=== PATIENT | female | born 1975 | race African-American/Black ===

== ENCOUNTER 2018-05-09 06:01 | Day surgery (SDC) | payer BC ==
[2018-05-08 12:34] VITALS: BMI 28.7
--- NOTE | 2018-05-09 12:37 | HP ---
History & Physical Update - History History: No Change - Physical Physical: No Change - Assessment Assessment: No Change - Plan Plan: No Change (No change in HP)
[2018-05-09] MEDS ORDERED: MIDAZOLAM HCL 2 MG/2 ML SINGLE DOSE VIAL ONE (12:58)
[2018-05-09] MEDS ORDERED: PROPOFOL 20 ML ONE ×2 (12:58→13:58)
[2018-05-09] MEDS ORDERED: DEXAMETHASONE SOD PHOSPHATE 4 MG/1 ML VIAL ONE (12:59)
[2018-05-09] MEDS ORDERED: LIDOCAINE HCL/PF 2% SDV 5ML VIAL ONE (12:59)
[2018-05-09] MEDS ORDERED: PROMETHAZINE HCL 25 MG/1 ML VIAL IVPUSH PRN (13:56)
[2018-05-09] MEDS ORDERED: oxyCODONE HCL 5 MG TABLET PO PRN (13:56)
[2018-05-09] MEDS ORDERED: ONDANSETRON 4 MG/2 ML VIAL IVPUSH PRN (13:56)
[2018-05-09] MEDS ORDERED: MEPERIDINE HCL CARPU-JECT 25 MG/1 ML DISP.SYRIN ONE (14:10)
[2018-05-09] MEDS ORDERED: MEPERIDINE HCL CARPU-JECT 25 MG/1 ML DISP.SYRIN IVPUSH ONE (14:14)
[2018-05-09 16:52] VITALS: PULSE 89; TEMP 98
[2018-05-09] MEDS ORDERED: ACETAMINOPHEN 325 MG TABLET (FP) PO PRN (17:03)
[2018-05-09] MEDS ORDERED: IBUPROFEN 400 MG TABLET (FP) PO PRN (17:03)
--- NOTE | 2018-05-09 17:05 | OP ---
Operative Note - Note: Operative Date: 05/09/18 Pre-Operative Diagnosis: Submucosal myoma. dysmenorrhea. Preious HTA ablation Operation: Hysteroscopic lysis of adhesions. Suction DC Post-Operative Diagnosis: Same as Pre-op Surgeon: Kaykay Frye Anesthesia: General Estimated Blood Loss (mls): 30 Operative Report Dictated: Yes
[2018-05-09 17:39] VITALS: BP 135/76
--- NOTE | 2018-05-13 16:25 | PATH ---
Surgical Pathology Report Patient Name: NICOLE HEATON [facility]. Rec. #: [id number] /Age/Gender: 1975 (Age: 42) / F Account: [id number] Location: [facility] SURGICAL Taken: 05/09/2018 Received: 05/10/2018 Reported: 05/13/2018 Physicians: Kaykay Frye M.D. Specimen(s) Received CURETTINGS Clinical History Submucosal myoma Final Diagnosis CURETTINGS: NO ENDOMETRIAL TISSUE PRESENT FOR EVALUATION. UNREMARKABLE ENDOCERVICAL GLANDS AND SQUAMOUS EPITHELIUM ADMIXED WITH BLOOD CLOT. Electronically Signed Zulma Rice M.D. Gross Description Received in formalin labeled "curettings," is a 4.0 x 3.7 x 0.4 cm aggregate of red-brown soft tissue fragments admixed with blood clot. The formalin is filtered and the specimen is entirely submitted in 3 cassettes. /05/10/201805/10/2018
--- NOTE | 2018-05-14 06:44 | OP ---
DATE OF OPERATION: 05/09/2018 PREOPERATIVE DIAGNOSIS: Submucosal myoma, dysmenorrhea, and previous HTA ablation. . OPERATION: Hysteroscopic lysis of adhesions and suction dilatation and curettage. POSTOPERATIVE DIAGNOSIS: Submucosal myoma, dysmenorrhea, and previous HTA ablation. . SURGEON: Kaykay Frye MD ANESTHESIA: General. ESTIMATED BLOOD LOSS: 30 mL. PROCEDURE: Patient was taken to the operating room, placed in dorsal lithotomy position, prepped and draped in the usual sterile fashion. A time-out was performed in accordance with hospital regulations. A speculum was placed in the vagina. The anterior lip of the cervix was grasped with a single-tooth tenaculum. Cervix was then dilated to accommodate the diagnostic hysteroscope. Upon dilation, patient was noted to have difficulty with dilation, so was not able to put in the operative hysteroscope. Visualization revealed numerous adhesions. Patient had had a previous HTA ablation and was found to be scarred. Lysis of adhesions was done, visualization of somewhat the cavity. Of note, submucosal myoma was not able to be removed due to its location, which looked more intramural. Lysis of adhesions was done and then followed by suction dilatation and curettage. After procedure had been done, all instruments were then removed. Estimated blood loss was about 30 mL. Patient was taken to recovery room in stable condition. KAYKAY FRYE M.D. [id number]
== END 2018-05-09 17:40 | disposition home or self-care (01) ==
LOC: JASU-SURG 06:01
PROVIDERS: ATTEND Obstetrics & Gynecology
PROC: 0UN98ZZ Release Uterus, Via Natural or Artificial Opening Endoscopic (ICD-10-PCS; 2018-05-09)
PROC: 0UDB7ZX Extraction of Endometrium, Via Natural or Artificial Opening, Diagnostic (ICD-10-PCS; principal; 2018-05-09 13:00)
PROC: 0UJD8ZZ Inspection of Uterus and Cervix, Via Natural or Artificial Opening Endoscopic (ICD-10-PCS; 2018-05-09 13:00)
DX: D25.1 Intramural leiomyoma of uterus (principal); N94.4 Primary dysmenorrhea; N85.6 Intrauterine synechiae
CPT/HCPCS: 86850; 86900; 86901; 88305-TC; 94760

== ENCOUNTER 2018-07-01 05:00 | Day surgery (SDC) | payer BC ==
[2018-06-28 15:34] VITALS: BMI 29.0
[~2018-07-01 05:00] MED LIST: BUPIVACAINE HCL/PF (5 MG/ML) 30 ML VIAL IJ ONE
[2018-07-01] MEDS ORDERED: PHENAZOPYRIDINE HCL 100 MG TABLET (FP) PO ONE (06:45)
[2018-07-01] MEDS ORDERED: ceFAZolin SODIUM 1 GM VIAL ONE (07:03)
[2018-07-01] MEDS ORDERED: fentaNYL CITRATE 250 MCG/5 ML VIAL ONE (07:50)
[2018-07-01] MEDS ORDERED: ROCURONIUM BROMIDE 50 MG/5 ML VIAL ONE ×2 (07:50→08:56)
[2018-07-01] MEDS ORDERED: MIDAZOLAM HCL 2 MG/2 ML SINGLE DOSE VIAL ONE (07:51)
[2018-07-01] MEDS ORDERED: PROPOFOL 20 ML ONE (07:51)
[2018-07-01] MEDS ORDERED: DESFLURANE GAS 240 ML BOTTLE IH ONE (07:52)
--- NOTE | 2018-07-01 07:56 | HP ---
History & Physical Update - History History: No Change - Physical Physical: No Change - Assessment Assessment: No Change - Plan Plan: No Change
[2018-07-01] MEDS ORDERED: CEFAZOLIN 2 GM in DEXTROSE 5%-WATER 100 ML IVPB ONE (08:00)
[2018-07-01] MEDS ORDERED: LIDOCAINE HCL/PF 2% SDV 5ML VIAL ONE (08:35)
[2018-07-01] MEDS ORDERED: DEXAMETHASONE SOD PHOSPHATE 4 MG/1 ML VIAL ONE (08:35)
[2018-07-01] MEDS ORDERED: ceFAZolin SODIUM 1 GM VIAL IVPB ONE (08:40)
[2018-07-01] MEDS ORDERED: BUPIVACAINE HCL/PF 0.5% (5MG/ML) 10 ML VIAL ONE (09:46)
[2018-07-01] MEDS ORDERED: NEOSTIGMINE METHYLSULFATE 0.5 MG/ML - 10 ML MDV ONE (10:26)
[2018-07-01] MEDS ORDERED: GLYCOPYRROLATE 0.2 MG/1 ML VIAL ONE (10:27)
[2018-07-01] MEDS ORDERED: BUPIVACAINE HCL/PF (5 MG/ML) 30 ML VIAL IJ ONE (10:28)
[2018-07-01] MEDS ORDERED: DOCUSATE SODIUM 100 MG CAPSULE (FP) PO PRN (10:57)
[2018-07-01] MEDS ORDERED: ONDANSETRON 4 MG/2 ML VIAL IVPUSH PRN ×2 (10:57→11:00)
[2018-07-01] MEDS ORDERED: BISACODYL 5 MG TABLET.DR (FP) PO PRN (10:57)
[2018-07-01] MEDS ORDERED: SODIUM CHLORIDE 1,000 ML IV SCH (11:00)
[2018-07-01] MEDS ORDERED: ACETAMINOPHEN 1000 MG/100 ML VIAL (NON FORMULARY) IVPB ONE (11:03)
[2018-07-01] MEDS ORDERED: MEPERIDINE HCL CARPU-JECT 25 MG/1 ML DISP.SYRIN IVPUSH ONE (11:05)
[2018-07-01] MEDS ORDERED: HYDROmorphone HCl 2 MG/ML VIAL ONE ×2 (11:09→11:34)
[2018-07-01] MEDS: HYDROmorphone HCL CARPU-JECT 2 MG/1 ML DISP.SYRIN IVPUSH PRN ×4 (11:09→11:44)
--- NOTE | 2018-07-01 11:15 | OP ---
Operative Note - Note: Operative Date: 07/01/18 Pre-Operative Diagnosis: leiomyomatous uterus Operation: robotic assisted laparoscopic total hysterectomy with bilateral salpingectomy, Right ovaian cystectomy, left ovarian cyst rupture Surgeon: Kaykay Frye Sulfide Head Operator: Mary Kay Chan Anesthesiologist/RESERVOIR ENGINEER: Adriana Clark Anesthesia: General Specimens Removed: uterus with cervix, bilateral salpingx, right ovarian cyst Estimated Blood Loss (mls): 30 Drains, Volume Out (mls): 325 ([place]) Fluid Volume Replaced (mls): 1,400 Operative Report Dictated: Yes
--- NOTE | 2018-07-01 11:21 | SURG ---
Surgery Doughnut Icer Machine Note Doughnut Icer Machine: Mary Kay Chan PA-C Date of Service: 07/01/18 Diagnosis: leiomyomatous uterus Procedure: robotic assisted laparoscopic total hysterectomy with bilateral salpingectomy, Right ovaian cystectomy, left ovarian cyst rupture I was present for the entirety of the operative procedure. For further detail, please refer to operative report. Visit type - Case Type Case Type: Scheduled - Emergency Emergency Visit: No - New patient This patient is new to me today: Yes Date on this admission: 07/01/18
[2018-07-01] MEDS: LACTATED RINGERS SOLUTION 1,000 ML IV SCH ×2 (11:40→21:06)
[2018-07-01] MEDS ORDERED: oxyCODONE HCL 5 MG TABLET PO PRN (13:11)
[2018-07-01] MEDS ORDERED: SIMETHICONE 80 MG TAB.CHEW (FP) PO PRN (13:14)
[2018-07-01] MEDS: CEFAZOLIN 1 GM/D5W 1 GM/50 ML BAG IVPB SCH ×2 (15:22→23:48)
[2018-07-01] MEDS: IBUPROFEN 800 MG/8 ML IJ IVPB SCH ×2 (16:05→17:55)
[2018-07-01] MEDS: ACETAMINOPHEN 325 MG TABLET (FP) PO SCH ×2 (17:56→23:48)
--- NOTE | 2018-07-01 18:51 | OP ---
DATE OF OPERATION: 07/01/2018 PREOPERATIVE DIAGNOSIS: Pelvic pain, Asherman syndrome, menorrhagia, leiomyomatous uterus. OPERATION: Laparoscopic robotic total hysterectomy, bilateral salpingo-oophorectomy, right ovarian cystectomy, left ovarian cystotomy. SURGEON: Jagdeep Frye MD FINAL ASSEMBLY INSPECTOR: NATHAN Murray ANESTHESIA: General. ANESTHESIOLOGIST: FINDINGS: Uterus approximately 12 cm in size. Tubes noted to be normal, both left and right cysts. DESCRIPTION OF PROCEDURE: The patient was taken to the operating room and placed in dorsal lithotomy position, prepped and draped in the usual sterile fashion. A time-out was performed in accordance with hospital regulation. Speculum was placed in the vagina. Anterior lip of the cervix was grasped with a single-tooth tenaculum. The cervix was then dilated to accommodate the operative uterine manipulator. Yancey catheter was then inserted. Attention was then drawn to the umbilicus where an 8-mm umbilical incision was made. Veress needle was inserted into the cavity. Approximately 3-4 L of CO2 was insufflated in the cavity. Veress needle was then removed, and an 8-mm trocar was inserted. Laparoscope and camera attached. Visualization revealed leiomyomatous uterus right and left ovarian cyst. Tubes were noted to be normal. Two trocars were placed on the left, one parallel to the umbilical incision and a second one in the upper abdomen. A 5-mm incision was made in the upper abdomen, and a 5-mm AirSeal cannula was inserted. Two trocars were placed on the left side 8 mm apart, 8-mm incisions were then made, and trocars were inserted under direct visualization. The Da Barry robot was side docked to the patient's bedside, and trocars were then inserted. Instruments were then inserted, tenaculum on the right as well as Endo Jacque on the right and vessel sealer on the left. The patient had been placed in steep Trendelenburg, and all instruments were then confirmed placement. Attention was then drawn to the console where control of the robot was done. The tenaculum was then used to grasp the uterus to the right side. Uterine ovarian ligament was identified, clamped, and cut. Tubes were identified, clamped, and cut. Uterine arteries were identified, clamped, and cut. Cardinal ligaments were then clamped and cut down to the level of the cervix. The bladder was bluntly dissected out of the operative field. Vesicouterine reflection was then entered, and the bladder was bluntly dissected out of the operative field. Endo Jacque were then used to cut the vagina away from the cervix. The same procedure was repeated on the right side. Same ligaments were identified, clamped, and cut. Utero-ovarian ligament were identified, clamped, and cut. The uterine artery was identified, clamped, and cut. Cardinal ligament was identified, clamped, and cut down to the level of the cervix after bladder had been bluntly dissected out of the operative field. Vagina was entered, and circumferential stitch around the cervix was done. The vagina was totally removed from the cervix. The cervix was then removed from the vagina, and uterine manipulator was removed. Tubes were bilaterally grasped, coagulated, and cut, and both tubes were removed. The ovaries were identified, and a large 4-cm ovarian cyst was identified. Endo Jacque were used to enter the cyst. Using sharp and blunt dissection, the cyst was removed from the ovary and submitted to Pathology. Left ovary noted to be about a 2- to 3-cm cyst. Cystotomy was then performed, and cystic fluid was removed. Hemostasis was achieved. Ureters were identified and found to be peristalsis both prior to the surgery and after the surgery. Irrigation was done. The needle was then passed through the vagina, and using the 2-0 V-Lock suture, the vagina was then closed using the Da Barry robot continuous fashion. Needle was then removed. All instruments were then removed. CO2 was removed. Incisions were then closed using 4-0 Biosyn suture in a subcuticular fashion. The wound was washed and dressed. The patient tolerated the procedure well. Estimated blood loss was 25 mL. JAGDEEP FRYE M.D. [id number]
[2018-07-01 19:14] LABS: HEMATOCRIT 32.4 % (32.4-45.2); HEMOGLOBIN 10.8 GM/dL (10.7-15.3); MCH 27.6 pg (25.7-33.7); MCHC 33.3 g/dl (32.0-36.0); MEAN CELL VOLUME 82.7 fl (80-96); MEAN PLT VOLUME 7.8 fl (7.5-11.1); PLATELET COUNT 325 K/MM3 (134-434); RBC 3.92 M/mm3 (3.60-5.2); RDW 13.9 % (11.6-15.6)
[2018-07-01 19:25] LABS: ANION GAP 8 MMOL/L (8-16); BLOOD UREA NITROGEN 10 mg/dL (7-18); CALCIUM 8.2 mg/dL (8.5-10.1); CHLORIDE 102 mmol/L (98-107); CO2 28 mmol/L (21-32); GLUCOSE,RANDOM 156 mg/dL (74-106); POTASSIUM 4.1 mmol/L (3.5-5.1); SODIUM 138 mmol/L (136-145)
[2018-07-01] MEDS: oxyCODONE HCL 5 MG TABLET PO PRN (21:06)
[2018-07-02] MEDS: IBUPROFEN 800 MG/8 ML IJ IVPB SCH (01:03)
[2018-07-02] MEDS: oxyCODONE HCL 5 MG TABLET PO PRN ×2 (01:08→06:13)
[2018-07-02] MEDS: ACETAMINOPHEN 325 MG TABLET (FP) PO SCH (06:14)
[2018-07-02 07:19] LABS: HEMATOCRIT 32.2 % (32.4-45.2); HEMOGLOBIN 10.6 GM/dL (10.7-15.3); MCH 27.2 pg (25.7-33.7); MCHC 32.9 g/dl (32.0-36.0); MEAN CELL VOLUME 82.4 fl (80-96); MEAN PLT VOLUME 7.5 fl (7.5-11.1); PLATELET COUNT 316 K/MM3 (134-434); RBC 3.91 M/mm3 (3.60-5.2); WHITE BLOOD COUNT 12.1 K/mm3 (4.0-10.0)
[2018-07-02 07:45] LABS: ANION GAP 6 MMOL/L (8-16); BLOOD UREA NITROGEN 7 mg/dL (7-18); CALCIUM 8.7 mg/dL (8.5-10.1); CHLORIDE 101 mmol/L (98-107); CO2 31 mmol/L (21-32); CREATININE 0.9 mg/dL (0.55-1.3); GLUCOSE,RANDOM 109 mg/dL (74-106); POTASSIUM 3.4 mmol/L (3.5-5.1); SODIUM 138 mmol/L (136-145)
--- NOTE | 2018-07-02 07:51 | PN ---
Progress Note (short form) - Note Progress Note: POD#1 Pt oob to chair this am. Occasional abd pain. No nausea or emesis, had clears last pm. She passed flatus. No CP/SOB. Vital Signs Period Temp Pulse Resp BP Sys/Slater Pulse Ox Last 24 Hr 97.2 F-98.7 F 85-103 16-20 120-149/67-85 99-100 Yancey: uop clear 2500 GEN: A&0x3, NAD CV: RRR Lungs: CTA b/l ABD: soft, inc tendneress. Inc c/d/i. CBC, BMP 07/02/18 07:00 Laboratory Tests 07/01/18 07/01/18 18:10 18:10 WBC 12.0 H Hgb 10.8 Hct 32.4 Plt Count 325 Sodium 138 Potassium 4.1 Chloride 102 Carbon Dioxide 28 Anion Gap 8 BUN 10 Creatinine 1.0 A/P: 42 yo female s/p robotic assisted lap total hysterectomy, b/l salpingectomy with right ovarian cystectomy Advance diet to regular this am Yancey removed this am, TOV OOB ambulate Changed to oral motrrin/tylenol for pain and narocotics as needed DVT ppx with Lovenox SQ Plan for dishcarge to home today
[2018-07-02] MEDS ORDERED: POTASSIUM CHLORIDE TABS 20 MEQ TABLET.ER (FP) PO ONE (07:56)
[2018-07-02 08:31] VITALS: BP 129/80; PULSE 87; TEMP 99.2
--- NOTE | 2018-07-02 09:32 | PN ---
Progress Note (short form) - Note Progress Note: s/p robotic hysterectomy under GA. Minimal pain, pt doing well, no anesthetic issues/complications
[2018-07-02] MEDS ORDERED: HYDROCHLOROTHIAZIDE 25 MG TABLET (FP) PO SCH (10:00)
[2018-07-02] MEDS ORDERED: VENLAFAXINE HCL 75 MG E.R. CAPSULES (FP) PO SCH (10:00)
[2018-07-02] MEDS ORDERED: lamoTRIgine 100 MG TABLET (FP) PO SCH (10:00)
[2018-07-02] MEDS ORDERED: valACYclovir HCL 500 MG TABLET (FP) PO SCH (10:00)
[2018-07-02] MEDS ORDERED: ENOXAPARIN NA (PORCINE) 30 MG/0.3 ML DISP.SYRIN SQ SCH ×2 (10:00)
[2018-07-02] MEDS ORDERED: ENOXAPARIN NA (PORCINE) 40 MG/0.4 ML DISP.SYRIN SQ SCH (10:00)
[2018-07-02] MEDS ORDERED: IBUPROFEN 400 MG TABLET (FP) PO PRN (14:00)
[2018-07-02] MEDS ORDERED: IBUPROFEN 600 MG TABLET (FP) PO PRN (14:00)
--- NOTE | 2018-07-03 13:58 | PATH ---
Surgical Pathology Report Patient Name: NICOLE HEATON [facility]. Rec. #: [id number] /Age/Gender: 1975 (Age: 42) / F Account: [id number] Location: AMBULATORY SURG Taken: 07/01/2018 Received: 07/01/2018 Reported: 07/03/2018 Physicians: Kaykay Frye M.D. Specimen(s) Received A: UTERUS AND CERVIX B: LEFT FALLOPIAN TUBE C: RIGHT FALLOPIAN TUBE D: OVARIAN CYST Clinical History Leiomyoma of uterus Final Diagnosis A. UTERUS AND CERVIX, HYSTERECTOMY: UTERUS AND CERVIX, 133 GRAMS, WITH LEIOMYOMA, INACTIVE ENDOMETRIUM WITH NECROSIS CONSISTENT WITH PRIOR ABLATION, AND CERVIX WITH CHRONIC INFLAMMATION. B. LEFT FALLOPIAN TUBE, SALPINGECTOMY: FULL LUMINAL PORTION OF FALLOPIAN TUBE INCLUDING FIMBRIATED END. C. RIGHT FALLOPIAN TUBE, SALPINGECTOMY: FULL LUMINAL PORTION OF FALLOPIAN TUBE INCLUDING FIMBRIATED END. D. RIGHT OVARIAN CYST, EXCISION: BENIGN LUTEAL CYST. Comment: Also see [id number]. Electronically Signed James Goldsmith M.D. Gross Description A. Received in formalin labeled "uterus and cervix," is a 133 g uterus with an attached cervix and no adnexa. The specimen measures 9 cm from superior to inferior, 0.5 cm from left to right and 5.0 cm from anterior to posterior. The serosa is linda-pink and smooth. The cervix measures 4 cm in length and averages 2.8 cm in diameter. The ectocervix is pink-linda, smooth and glistening. The endocervix is unremarkable. The endometrial cavity measures 4 cm in length and 2.5 cm from cornu to cornu. The cavity contains brown blood. The endometrium is brown and averages 0.1 cm in thickness. The myometrium is linda-pink and measures up to 2.6 cm in thickness. There is a 1.0 cm in greatest dimension intramural nodule present. The cut surface of the nodule is linda and rubbery with whorled architecture. Community Outreach Worker sections are submitted in 7 cassettes as follows: 1-anterior cervix; 2-posterior cervix; 2-6-ajketrdl endomyometrium; 6-2-knutychdc endomyometrium; 7-intramural nodule. B. Received in formalin labeled "left fallopian tube," is a 3 cm in length fimbriated fallopian tube. The outer surface is linda verduzco and smooth. Sectioning reveals an unremarkable lumen. Community Outreach Worker sections are submitted in 2 cassettes as follows: 1-fimbria; 2-cross sections of fallopian tube. C. Received in formalin labeled "right fallopian tube," is a 4.5 cm in length fimbriated fallopian tube. The outer surface is linda-solares and smooth. Sectioning reveals an unremarkable lumen. Community Outreach Worker sections are submitted in 2 cassettes as follows: 1-fimbria; 2-cross sections of fallopian tube. D. Received in formalin labeled "right ovarian cyst," are 2 linda portions of cyst wall measuring 2.5 x 1.3 x 0.1 cm and 3.0 x 1.6 x 0.2 cm. Community Outreach Worker sections are submitted in one cassette. 07/02/2018 [facility]07/02/2018
== END 2018-07-02 11:00 | disposition home or self-care (01) ==
LOC: JASUSAT 05:00 → J3W 12:45 → JASUSAT 07-02 11:00
PROVIDERS: ATTEND Obstetrics & Gynecology
PROC: 0UT7FZZ Resection of Bilateral Fallopian Tubes, Via Natural or Artificial Opening With Percutaneous Endoscopic Assistance (ICD-10-PCS; 2018-07-01)
PROC: 8E0W8CZ Robotic Assisted Procedure of Trunk Region, Via Natural or Artificial Opening Endoscopic (ICD-10-PCS; 2018-07-01)
PROC: 0UT9FZZ Resection of Uterus, Via Natural or Artificial Opening With Percutaneous Endoscopic Assistance (ICD-10-PCS; principal; 2018-07-01 08:00)
PROC: 0UT2FZZ Resection of Bilateral Ovaries, Via Natural or Artificial Opening With Percutaneous Endoscopic Assistance (ICD-10-PCS; 2018-07-01 08:00)
DX: N92.0 Excessive and frequent menstruation with regular cycle (principal); D25.9 Leiomyoma of uterus, unspecified; N83.202 Unspecified ovarian cyst, left side; N83.201 Unspecified ovarian cyst, right side
CPT/HCPCS: 58552; S2900; 36415; 80048; 85027; 88302-TC; 88305-TC; 88307-TC; 94010; 94760; J0131